=== PATIENT | male | born 1960 | race Caucasian/White ===

== ENCOUNTER 2023-09-22 01:22 | Emergency (ER) | payer SELFPAY ==
[~2023-09-22] VITALS: Ht 175.3 cm; Wt 97.5 kg
[2023-09-22 01:29] VITALS: BP 170/100; PULSE 81; RESP 16; TEMP 98.2; O2SAT 99
[2023-09-22] MEDS: hydroCHLOROthiazide 25 MG TAB PO ONE (01:58)
[2023-09-22] MEDS ORDERED: HYDR-4004 PO (02:03)
[2023-09-22 02:25] VITALS: BP 159/110; RESP 14; O2SAT 99
== END 2023-09-22 02:21 ==
LOC: MED 01:22
DX: Z02.89 Encounter for other administrative examinations (principal); I10 Essential (primary) hypertension; E11.9 Type 2 diabetes mellitus without complications; Z79.4 Long term (current) use of insulin; Z79.899 Other long term (current) drug therapy
CPT/HCPCS: 99283